=== PATIENT | female | born 1965 | race Caucasian/White ===

== ENCOUNTER 2018-03-06 07:23 | Inpatient (IN) ==
[2018-02-28 16:51] LABS: Appearance,Urine CLEAR; Bilirubin,Urine NEG (NEG); Color,Urine STRAW; Glucose,Urine (UA) NEGATIVE (NEG); Leukocyte Esterase,Urine NEG /uL (NEG); Protein,Urine NEG (NEG); Specific Gravity,Urine 1.014 (1.000-1.035); Urine Blood NEG mg/dL (<0.03); Urobilinogen,Urine NEG (NEG)
[2018-02-28 18:43] LABS: Blood Urea Nitrogen 17 mg/dl (6-20)
[2018-02-28 19:13] LABS: Basophils # (Auto) 0.1 K/mcL (0.0-0.3); Basophils % (Auto) 1.1 % (0.0-2.0); Eosinophils # (Auto) 0.5 K/mcL (0.0-0.7); Eosinophils % (Auto) 5.4 % (0.0-7.0); Granulocytes % (Auto) 65.4 % (38.0-78.0); Lymphocytes # (Auto) 1.7 K/mcL (1.5-4.8); Lymphocytes % (Auto) 18.1 % (15.5-49.0); Mean Cell Volume 74.6 fL (80.0-100.0); Mean Corpuscular HGB Conc 31.8 g/dL (31.0-36.0); Mean Corpuscular Hemoglobin 23.7 pg (26.0-34.0); Monocytes # (Auto) 0.9 K/mcL (0.1-0.9); Platelet Count 336 K/mcL (140-440); RBC 4.52 M/mcL (4.00-5.20); Red Cell Distribution Width 24.3 % (11.5-14.5)
--- NOTE | 2018-03-05 07:46 | General Surgery Progress Note ---
Surgical - Auxillary Note - Subjective Patient Information: Note initiated : 03/05/18 at 7:44 am Service Date, if different from initiated Date: [] Patient: Dana Duarte 52 y/o F admitted on for Right Total Hip Arthroplasty. Chief Complaint: [lab abnormalities microcytic anemia and hypokalemia noted recheck day of surgery, rec k+rider if still low no intervention needed for cbc]
[~2018-03-06 07:23] MED LIST: CELECOXIB 200 MG CAPSULE PO SCH; PREGABALIN 75 MG CAPSULE PO SCH; ceFAZolin 1 GM VIAL IV SCH; oxyCODONE 10 MG TAB.ER.12H PO SCH
[2018-03-06] MEDS ORDERED: POTASSIUM CHLORIDE 20 MEQ in DEXTROSE 5% IN WATER 250 ML IV STA (09:30)
[2018-03-06] MEDS ORDERED: HEPARIN 20,000 UNIT/ML VIAL IR ONE (09:36)
[2018-03-06] MEDS ORDERED: ONDANSETRON 4 MG/2 ML VIAL IV ONE (12:05)
[2018-03-06] MEDS ORDERED: ePHEDrine 50 MG/ML AMPUL IV ONE (12:05)
[2018-03-06] MEDS ORDERED: DEXAMETHASONE 10 MG/ML VIAL IV ONE (12:05)
[2018-03-06] MEDS ORDERED: TRANEXAMIC ACID 1,000 MG/10 ML VIAL IV ONE ×2 (12:05→13:44)
[2018-03-06] MEDS ORDERED: PROPOFOL 200 MG/20 ML VIAL IV ONE (12:05)
[2018-03-06] MEDS ORDERED: GLYCOPYRROLATE 0.2 MG/ML VIAL IV ONE (12:05)
[2018-03-06] MEDS ORDERED: HETASTARCH 6% 500 ML BAG IV ONE (12:05)
[2018-03-06] MEDS ORDERED: PHENYLEPHRINE 10 MG/ML VIAL IV ONE (12:05)
[2018-03-06] MEDS ORDERED: MIDAZOLAM 5 MG/5 ML VIAL IV ONE (12:05)
[2018-03-06] MEDS ORDERED: METOPROLOL TARTRATE 5 MG/5 ML VIAL IV PRN (13:06)
[2018-03-06] MEDS ORDERED: FLUMAZENIL 0.1 MG/ML ML IV PRN (13:06)
[2018-03-06] MEDS ORDERED: MEPERIDINE 25 MG/ML SYRINGE IV PRN (13:06)
[2018-03-06] MEDS ORDERED: ONDANSETRON 4 MG/2 ML VIAL IV PRN ×2 (13:06→13:44)
[2018-03-06] MEDS ORDERED: IPRATROPIUM/ALBUTEROL 3 ML AMPUL.NEB NEB PRN (13:06)
[2018-03-06] MEDS ORDERED: HYDROmorphone 2 MG/ML VIAL IV PRN ×2 (13:06→13:44)
[2018-03-06] MEDS ORDERED: NALOXONE HCL 0.4 MG/ML VIAL IV PRN (13:06)
[2018-03-06] MEDS ORDERED: diphenhydrAMINE 50 MG/ML VIAL IV PRN (13:06)
[2018-03-06] MEDS ORDERED: ePHEDrine 50 MG/ML AMPUL IV PRN (13:06)
[2018-03-06] MEDS ORDERED: fentaNYL 100 MCG/2 ML VIAL IV PRN (13:06)
[2018-03-06] MEDS ORDERED: ATROPINE SULFATE 0.4 MG/ML VIAL IV PRN (13:06)
[2018-03-06] MEDS ORDERED: ACETAMINOPHEN 1,000 MG/100 ML BOTTLE IV ONE (13:06)
[2018-03-06] MEDS ORDERED: METHOCARBAMOL 1,000 MG/10 ML VIAL IV PRN (13:06)
[2018-03-06] MEDS ORDERED: PROMETHAZINE 25 MG/ML VIAL IV PRN (13:06)
[2018-03-06] MEDS ORDERED: 0.9 % SODIUM CHLORIDE 250 ML IV SCH (13:15)
[2018-03-06] MEDS ORDERED: LACTATED RINGERS 1,000 ML IV SCH (13:15)
[2018-03-06] MEDS ORDERED: FLEETS ADULT ENEMA PR PRN (13:44)
[2018-03-06] MEDS ORDERED: BISACODYL 10 MG SUPP.RECT PR PRN (13:44)
[2018-03-06] MEDS ORDERED: BENZOCAINE/MENTHOL 1 LOZENGE PO PRN (13:44)
[2018-03-06] MEDS ORDERED: MAGNESIUM HYDROXIDE 30 ML ORAL.SUSP PO PRN (13:44)
[2018-03-06] MEDS ORDERED: POLYETHYLENE GLYCOL 3350 17 GM PACKET PO PRN (13:44)
--- NOTE | 2018-03-06 13:44 | Brief Operative Note ---
Date of procedure: 03/06/18 Pre-op diagnosis: Right hip developmental dysplasia with DJD Post-op diagnosis: same Procedure: Right anterior total hip arthroplasty Grafts/Implants: Yes (Depuy Corail collarless 6 stem, +1 32mm delta head, 48 cup , neutral altrx ) Anesthesia: spinal, GLMA Findings: severe arthrosis with dysplasia Complications: none Surgeon: Ramón Ren Gasoline Pump Installer: Jose Guzman Estimated blood loss (cc): 350 Specimens Removed/Pathology: none sent Condition: stable Disposition: PACU
--- NOTE | 2018-03-06 14:34 | XRay Report ---
CLINICAL INFORMATION: Postsurgical follow-up TECHNIQUE: AP pelvis. Lateral right hip COMPARISON: None. FINDINGS: Status post right total hip arthroplasty. Tibial and femoral head components are in anatomic. There is postsurgical soft tissue and intra-articular gas. There are skin jeff anteriorly. IMPRESSION: Status post right total hip arthroplasty Interpreted and Authenticated by: Drew Padilla 03/06/18
--- NOTE | 2018-03-06 14:39 | XRay Report ---
CLINICAL INFORMATION: Right hip replacement TECHNIQUE: 0.5 minutes fluoroscopy utilized. Spot films obtained during right total hip arthroplasty COMPARISON: None. IMPRESSION: Intraoperative fluoroscopy utilized for right total hip arthroplasty Interpreted and Authenticated by: Drew Padilla 03/06/18
--- NOTE | 2018-03-06 15:30 | Operative Note ---
DATE OF OPERATION: 03/06/2018 PREOPERATIVE DIAGNOSIS: Right hip developmental dysplasia with advanced arthrosis. POSTOPERATIVE DIAGNOSIS: Right hip developmental dysplasia with advanced arthrosis. PROCEDURE PERFORMED: Right anterior total hip arthroplasty placing a DePuy Corail collarless size 6 femoral stem; a +1, 32 mm delta ceramic head ball; a 48 mm Thorndike cup with a neutral Altrx liner. SURGEON: Ramón Ren M.D. DRILLER OPERATOR: Issa Guzman PA-C. ANESTHESIA: Spinal plus general. DRAINS: None. SPECIMENS: Femoral head and reamings which were discarded. BLOOD LOSS: 350 mL. COMPLICATIONS: None. POSTOPERATIVE CONDITION: Stable. INDICATIONS FOR SURGERY: This is a 52-year-old female who has had longstanding right hip pain. 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 She also had substantial limb shortening because of the dysplasia. FINDINGS AT SURGERY: As above. Post implantation showed acceptable hardware position and limb length equality. PROCEDURE IN DETAIL: The patient had been seen preoperatively and informed consent had been obtained after discussion of risks and benefits of surgery. Risks including, but not limited to, bleeding, possibly requiring transfusion; infection, possibly requiring implant removal and prolonged IV antibiotics; injury to nerves, blood vessels, and other surrounding structures; anesthetic risks; incomplete or no resolution of symptoms; leg length discrepancy; dislocation; fracture; DVT and pulmonary embolus risks; and the possibility of needing further revision surgery. She understood these risks and wished to proceed. Correct operative site was marked in preoperative holding and then patient was taken to the operating room and general anesthesia induced. She was carefully positioned on the fracture table, and the right hip and groin were carefully prepped and draped in normal sterile fashion, and a time-out was performed verifying patient name, operative site, and plan. Ioban was placed on skin surfaces and a standard anterior approach incision was made with a scalpel through skin and subcutaneous tissue. Hemostasis was obtained with Bovie cautery. We continued blunt dissection down onto the tensor fascia. This was undermined circumferentially. Irrisept was irrigated and then a ring retractor placed. Tensor fascia was incised in line with the muscle fibers and then careful blunt dissection taken medial to the muscle belly. Blunt cobras were placed on the superior and inferior neck, although her femoral neck was very shortened. We did use fluoroscopy to verify positioning and then we used a Bovie to coagulate and cut circumflex vessels and release vastus fascia. An anterior capsulectomy was performed. A corkscrew was placed in the femoral head and then osteotome used under fluoro to identify our approximate neck cut level. We went ahead and used the oscillating tip saw to make our neck cut and the head was levered out. Acetabulum was then exposed and confirmed significant dysplasia. We went ahead and excised what remained of labrum circumferentially and as well as removed soft tissue from the floor. We did place bone wax on the cut femoral neck surface to try and decrease the oozing. We then reamed, medializing with a [address] to the inner table, and then increasing reamer size and angle up to a 47. We opened a 48 three-hole Thorndike cup. We irrigated the acetabulum with Irrisept. After a minute we pulse lavaged with saline. We then impacted the cup in approximately 35 degrees of inclination and about 30 degrees of anteversion trying to make sure we did not have anterior rim overhanging. We did not have excellent press fit, so we went ahead and drilled and placed a 30 mm screw. After drilling, we got excellent cortical purchase which fixed the acetabulum very well. A center hole cover was placed and then a neutral Altrx liner was aligned and impacted. We then released traction and externally rotated the leg and released capsule around the medial and posterior neck. Leg was then extended and adducted. We released capsule out to the greater trochanter. Once we had exposed the proximal femur, it confirmed that we had seen on x-ray, that she had an extremely small femur. We used a box osteotome to initiate canal entry. We had difficulty even with this, so fluoro was brought in to verify we were of the right trajectory. We then used a rongeur and rasp, and then awl was attempted to be passed down which was difficult due to her small distal femur. We went ahead then and used the chili pepper under fluoro to get started, and then a size 6 broach was impacted for the Corail. This was unable to be seated fully, so we removed this and reamed with a 6 reamer. We then went up to an 8 reamer and had significant cortical chatter, so we re-broached with the size 6. It did seat down further but still above our neck cut. Given the trial not having a screw-on anterior approach broach handle, we were concerned if we really impacted it that we would be unable to remove it, so we went ahead and just opened a 6 collarless standard Corail stem. We irrigated the femoral canal with Irrisept. After a minute we pulse lavaged and then went ahead and impacted the stem. It seated about a centimeter above our neck cut. We waited several minutes and impacted some more. We got a couple more millimeters. We waited another couple of minutes and then some more impaction, and doing this two more times we are unable to get any more progress of the stem. We went ahead and opened a +1, 32 mm delta ceramic head ball. The stem was carefully cleaned and dried and then the head ball briskly impacted with multiple blows of the mallet. We then reduced the hip. There was tension but not extreme. We then brought in fluoro. AP of the nonoperative and operative hips were overlaid and appeared to be of equal leg length. The images were saved. We irrigated with Irrisept. After a minute we pulse lavaged with saline. Tensor fascia was closed with two #1 Vicryl running sutures. We then removed the ring retractor and irrigated Irrisept, after a minute pulse lavaged. Fat was tacked to fascia with Vicryl and then 2-0 Monocryl for subcutaneous and jeff for skin. Xeroform and sterile dressing were applied. The patient was then awakened, extubated, and transferred to recovery in stable condition. COLBY:andie Job ID: [id number] Doc ID: [id number] Ramón Ren MD
[2018-03-06] MEDS: KETOROLAC 30 MG/ML VIAL IV PRN ×2 (16:14→22:45)
[2018-03-06] MEDS: 0.9 % SODIUM CHLORIDE 10 ML SYRINGE IV SCH ×2 (16:16→21:25)
[2018-03-06] MEDS: 0.9 % SODIUM CHLORIDE 1,000 ML IV SCH (16:44)
[2018-03-06] MEDS: oxyCODONE/APAP 5/325MG TABLET PO PRN ×3 (17:05→22:45)
[2018-03-06] MEDS: ceFAZolin 1 GM VIAL IV SCH ×2 (17:12→21:23)
[2018-03-06] MEDS ORDERED: SENNOSIDES 1 TABLET PO SCH (21:00)
[2018-03-06] MEDS: ASPIRIN 325 MG ENTERIC COATED TABLET PO SCH (21:22)
[2018-03-06] MEDS: DOCUSATE SODIUM 100 MG CAPSULE PO SCH (21:22)
[2018-03-07] MEDS: oxyCODONE/APAP 5/325MG TABLET PO PRN ×3 (02:23→10:57)
[2018-03-07] MEDS: 0.9 % SODIUM CHLORIDE 1,000 ML IV SCH ×2 (03:28→10:53)
[2018-03-07] MEDS: 0.9 % SODIUM CHLORIDE 10 ML SYRINGE IV SCH (06:01)
--- NOTE | 2018-03-07 07:41 | Discharge Summary ---
Providers - Providers Patient information: Note initiated : 03/07/18 at 7:39 am Service Date, if different from initiated Date: [] Patient: Dana Duarte 52 y/o F admitted on 03/06/18 for Right Total Hip Arthroplasty. Chief Complaint: [] Discharge date: 03/07/18 Hospitalization Hospital course: Pt was admitted for a R total hip arthroplasty. Pt underwent the procedure on the day of admission and was discharged post-op day 1. Will f/u in 2 weeks at [facility]. Pt will use ASA 325mg bid for DVT prophylaxis. She was encouraged to ambulate frequently as well. Advised pt to continue her iron supplements due to anemia; needs to see PCP for work-up. Discharge diagnosis: R hip OA Exam - Exam Clean and dry: Yes Weight bearing status: as tolerated Ortho Discharge - [facility] - Patient Instructions Diet: Regular Diet Activity: activity as tolerated, weight bearing as tolerated Total Hip Protocol: Follow activity instructions as provided by Physical Therapy. Dressing Care: May shower in 2 days Patient Education: Minimally Invasive Total Hip Replacement (DC) Additional Instructions: Discharge Instructions: Do the exercises at home that physical therapy gave you throughout the day. Wear comfortable clothing for your physical therapy. Weight bearing as tolerated. You are scheduled to start physical therapy at [facility] ([phone]) on Take your prescription, photo ID, insurance cards, and current medication list with you to your first physical therapy appointment. Take your prescription to bean picker machine operator any medication or equipment (such as walker, crutches, toilet riser or C.P.M.) You have the Aquacel Ag dressing, leave in place for 7 days then remove. If dressing becomes soiled (turns black), remove and use gauze 4x4 dressing and silvasorb ointment and change daily. Keep incision clean and dry. You may start showering on post op day #2. To avoid constipation while taking any narcotic pain medication, take an over the counter stool softener/laxative. Use ice packs as directed, on for 20 minutes at a time throughout the day. This and elevation will help with pain and swelling. Call your physician for fevers above 100.5 or pain not controlled by medication. Your prescriptions are with your discharge information. Some medications were electronically transmitted to your pharmacy of choice. - Follow Up Plan Follow Up Appointments: Ramón Ren MD [Physician] - Jose Guzman PA-C [Physician Carpentry Teacher] - Disposition: Home, Self-Care Prognosis: Good Rehab Potential: Good Overall status at discharge: patient is progressing back to baseline - Orders For Discharge Prescriptions: Aspirin [Ecotrin] 325 mg PO BID #60 tab.ec HYDROcodone/APAP 10/325MG [[place] 10-325Mg] 1 - 2 tab PO Q4H PRN #75 tab PRN Reason: Pain Pending Studies Resuscitation Status Full Code Diet Regular Diet Start SunMarch 06 1346 Aspirin (Ecotrin) 325 mg PO BID [facility] Last Admin: 03/06/18 21:22 Dose: 325 mg Docusate Sodium (Colace) 100 mg PO BID [facility] Last Admin: 03/06/18 21:22 Dose: 100 mg Sodium Chloride (Sodium Chloride 0.9%) 1,000 mls @ 100 mls/hr IV .Q10H [facility] Last Admin: 03/07/18 03:28 Dose: Not Given Admin: 03/06/18 16:44 Dose: Not Given Ketorolac Tromethamine (Toradol) 30 mg IV Q6HP PRN PRN Reason: Pain Stop: 03/08/18 13:47 Last Admin: 03/06/18 22:45 Dose: 30 mg Admin: 03/06/18 16:14 Dose: 30 mg Oxycodone/Acetaminophen (Percocet 5-325 Mg) 0 tab PO Q4HP PRN PRN Reason: PAIN LEVEL 3-6 Last Admin: 03/07/18 06:00 Dose: 2 tab Admin: 03/07/18 02:23 Dose: 2 tab Admin: 03/06/18 22:45 Dose: 1 tab Admin: 03/06/18 21:20 Dose: 1 tab Admin: 03/06/18 17:05 Dose: 2 tab Senna (Senokot) 2 tab PO HS [facility] Last Admin: 03/06/18 21:19 Dose: 2 tab Sodium Chloride (Saline Flush) 10 ml IV Q8 [facility] Last Admin: 03/07/18 06:01 Dose: 10 ml Admin: 03/06/18 21:25 Dose: Not Given Admin: 03/06/18 16:16 Dose: Not Given Shift Summary 03/07/18 03:48 Shift Summary by Wilson Lopez pt ambulated 552 feet with SBA gait steady. voiding to the bathroom bladder scan 90ml. medicated with percocet 2 tabs Q4h, pain rating 4-7/10. dressing clean dry and tact. IV SL LFA patent. pt is tolerating the diet well, ice pack and AVB on and off. plan to D/C today. Initialized on 03/07/18 03:48 - END OF NOTE
[2018-03-07] MEDS ORDERED: FERROUS SULFATE 325 MG TABLET PO SCH (08:00)
[2018-03-07] MEDS: DOCUSATE SODIUM 100 MG CAPSULE PO SCH (08:07)
[2018-03-07] MEDS: ASPIRIN 325 MG ENTERIC COATED TABLET PO SCH (08:08)
[2018-03-07] MEDS ORDERED: amLODIPine 5 MG TABLET PO SCH (09:00)
[2018-03-07] MEDS ORDERED: GLUCOSAMINE/CHONDROITIN SULF A 1 CAP CAPSULE PO SCH (09:00)
[2018-03-07] MEDS ORDERED: ATENOLOL 50 MG TABLET PO SCH (09:00)
[2018-03-07] MEDS ORDERED: RANITIDINE HCL 150 MG PO SCH (09:00)
[2018-03-07] MEDS ORDERED: FAMOTIDINE 20 MG TABLET PO SCH (09:00)
[2018-03-07] MEDS ORDERED: MULTIVIT,THER IRON,CA,FA & MIN 1 TABLET PO SCH (09:00)
[2018-03-07] MEDS ORDERED: LISINOPRIL 20 MG TABLET PO SCH (09:00)
== END 2018-03-07 13:30 | disposition home or self-care (01) | DRG 470 ==
LOC: MEDSUR 07:23
PROVIDERS: ADMIT Orthopaedic Surgery; ATTEND Orthopaedic Surgery